=== PATIENT | male | born 1970 | race Caucasian/White ===

== ENCOUNTER 2018-04-17 09:42 | Emergency (ER) | payer OTHER ==
[2018-04-17] MEDS ORDERED: PROPARACAINE 0.5% 15 ML OPHT DROP ONE (09:47)
[2018-04-17 09:51] VITALS: BP 117/86
[2018-04-17] MEDS ORDERED: HYDROCOD/APAP 5/325 PREPACK#6 BTL TAKEHOME ONE (10:22)
[2018-04-17] MEDS ORDERED: HYDROCODONE/APAP 5/325 TAB PO ONE (10:22)
[2018-04-17] MEDS ORDERED: ERYTHROMYCIN 0.5% 1 GM OPHT.OINT LEFTEYE ONE ×2 (10:23→11:01)
--- NOTE | 2018-04-17 11:00 | EDPHY ---
H & P Time Seen by Provider: 04/17/18 09:54 HPI/ROS: CHIEF COMPLAINT: Left eye pain HISTORY OF PRESENT ILLNESS: Patient states he was moving furniture with his about 30 min prior to arrival when he injured his left eye. He states the metal foot of the furniture he was moving was knocked off and flew into his left eye. He had immediate pain and inability to open his eye and has had tearing and blurry vision since. He denies other injuries. He was not wearing glasses and does not use contacts. His tetanus vaccinations up-to-date. REVIEW OF SYSTEMS: Negative except per HPI. General Appearance: Alert, moderate distress secondary to left eye pain. Eyes: Pupils reactive, equal and round, conjunctiva and sclera injected on the left, profuse tearing. Visual defect visible to the cornea prior to fluorescein stain. Extraocular motions intact. With fluorescein stain large corneal abrasion that extends the entire diameter of the iris from 11-5 o' clock. At its greatest width the abrasion measures approximately 3 mm. No Rosanne sign. No foreign body. Respiratory: No respiratory distress Neurological: Awake, alert, no focal deficits. Skin: Warm and dry, no rashes. Musculoskeletal: Neck is supple nontender. Extremities are symmetrical, full range of motion, no edema. Psychiatric: Patient is oriented X 3, there is no agitation. Medical/surgical history: Allergies, no surgeries. Social history: Nonsmoker, denies drugs. Occasional alcohol. Smoking Status: Never smoked Constitutional: Initial Vital Signs Temperature (C) 36.9 C 04/17/18 09:47 Heart Rate 67 04/17/18 09:47 Respiratory Rate 16 04/17/18 09:47 Blood Pressure 117/86 H 04/17/18 09:47 O2 Sat (%) 94 04/17/18 09:47 O2 Delivery Mode Room Air Allergies/Adverse Reactions: No Known Allergies Allergy (Unverified 04/17/18 09:47) Home Medications: Medication Instructions Recorded Prudencio 04/17/18 Medical Decision Making ED Course/Re-evaluation: 10:[address] Matty Payan, ophthalmology. Plan is for topical erythromycin ointment to the eye now, then a double patch for 24 hr. Patient will also have oral pain medications given. Dr. Payan provided his phone number for patient to follow up this weekend as needed. Differential Diagnosis: Differential diagnosis includes but is not limited to corneal abrasion, corneal perforation, traumatic iritis, allergic conjunctivitis. After evaluation large corneal abrasion noted as documented above. No signs of globe rupture, foreign body, other facial trauma. Discussed with Ophthalmology, Dr. Payan, who recommended 24 hr with eye patch. Also will be given topical antibiotic and pain medications. Patient will follow up with Ophthalmology as needed. Tetanus vaccination up-to-date. Stable for discharge and understands return precautions. - Data Points Medications Given: Discontinued Medications Hydrocodone Bitart/Acetaminophen (Gardena 5/325mg Prepack#6) 1 btl TAKEHOME EDNOW ONE Stop: 04/17/18 10:23 Last Admin: 04/17/18 10:52 Dose: 1 btl Hydrocodone Bitart/Acetaminophen (Gardena 5/325) 1 tab PO EDNOW ONE Stop: 04/17/18 10:23 Last Admin: 04/17/18 10:35 Dose: 1 tab Erythromycin (Erythromycin 0.5%) 1 carole LEFTEYE ONCE ONE Stop: 04/17/18 10:24 Last Admin: 04/17/18 10:36 Dose: 1 carole Departure - Departure Clinical Impression: Corneal abrasion Qualifiers: Encounter type: initial encounter Laterality: left Qualified Code(s): S05.02XA - Injury of conjunctiva and corneal abrasion without foreign body, left eye, initial encounter Condition: Fair Instructions: Corneal Abrasion (ED) Additional Instructions: Leave patch on for 24 hr. Take Gardena for pain as needed. When you remove the patch you can apply 1/4 to 1/2 inch of ointment to the affected eye 3 to 5 times a day. Continue eye ointment until pain resolved. Call the refinery operator helper cracking unit, Dr. Payan, at [phone] if you developed increasing pain, pus, vision loss or other concerning symptoms. Referrals: NONE *PRIMARY CARE P,. [Primary Care Provider] - As per Instructions Matty Payan MD [Medical Doctor] - As per Instructions
== END 2018-04-17 11:25 | disposition home or self-care (01) ==
LOC: CED 09:42
DX: S05.02XA Injury of conjunctiva and corneal abrasion without foreign body, left eye, initial encounter (principal); W22.8XXA Striking against or struck by other objects, initial encounter
CPT/HCPCS: A4565-ER